=== PATIENT | male | born 1950 | race African-American/Black ===

== ENCOUNTER 2017-04-13 05:41 | Day surgery (SDC) | payer OTHER ==
[~2017-04-13] VITALS: Ht 170.2 cm; Wt 90.9 kg
[2017-04-13 07:24] LABS: HEMATOCRIT 21.8 % (42.0-54.0); MCHC 27.1 g/dL (31.0-37.0); MCV 65.1 fL (80.0-100.0); MEAN PLATELET VOLUME 9.5 fL (7.4-10.4); RBC 3.35 10x6/uL (4.20-6.10); RDW 21.7 % (11.5-14.5); WBC 9.6 10x3/uL (4.8-10.8)
[2017-04-13 07:31] LABS: HEMOGLOBIN 5.9 g/dL (13.5-17.5); MCH 17.6 pg (26.0-34.0)
[2017-04-13 08:39] VITALS: BP 108/69; Ht 170.2 cm; Wt 90.9 kg
[2017-04-13] MEDS ORDERED: LANOXIN125 MCG PO (09:08)
[2017-04-13] MEDS ORDERED: COREG25 MG PO (09:08)
[2017-04-13] MEDS ORDERED: ARTIFICIAL TEAR15 ML EACH EYE (09:09)
[2017-04-13] MEDS ORDERED: BAYER CHEWABLE81 MG PO (09:10)
[2017-04-13] MEDS ORDERED: FUROSEMIDE40 MG PO (09:11)
[2017-04-13] MEDS ORDERED: ALPHAGAN 0.2%5 ML EACH EYE (09:11)
[2017-04-13] MEDS ORDERED: MOBIC7.5 MG PO (09:12)
[2017-04-13] MEDS ORDERED: ZESTRIL40 MG PO (09:12)
[2017-04-13] MEDS ORDERED: HYDROCHLOROTHIA25 MG PO (09:12)
[2017-04-13] MEDS ORDERED: OMEPRAZOLE20 M1 PO (09:13)
[2017-04-13] MEDS ORDERED: SENEXON8.6 MG PO (09:13)
[2017-04-13] MEDS ORDERED: COUMADIN2.5 MG PO (09:14)
[2017-04-13 09:34] LABS: INR 1.22 (0.85-1.17); PROTIME 15.3 SECONDS (11.6-15.0)
--- NOTE | 2017-04-13 13:47 | NUR ---
1345 PROCEDURE ABORTED, PT COLON IS UNCLEAN, LOOKS IF PT HAS NOT PREPPED.
--- NOTE | 2017-04-13 14:18 | NUR ---
1353 BLOOD COMPLETED PER ANESTHESIA
--- NOTE | 2017-04-13 15:45 | NUR ---
1445 IV DC WITH CATHER TIP INTACT
--- NOTE | 2017-04-13 15:59 | NUR ---
BLOOD FINISH AT 1353 PER ANESTHIA ALL GIVEN IN GI LAB
--- NOTE | 2017-04-16 08:42 | OP ---
PATIENT NAME: RENEE TIRADO MEDICAL RECORD: [id number] :54 LOCATION:D.OPS ADMISSION DATE: SURGEON: WINTER PULIDO MD DATE OF OPERATION: 04/13/2017 PREOPERATIVE DIAGNOSES: 1. Acute blood loss anemia, requiring transfusions. 2. Significant cardiac issue, requiring that the procedure be done in a hospital facility. POSTOPERATIVE DIAGNOSES: 1. Acute blood loss anemia, requiring transfusions. 2. Significant cardiac issue, requiring that the procedure be done in a hospital facility. 3. Inadequate prep, essentially it appeared that he did not take any prep. The procedure had to be abandoned. PROCEDURE: Attempted colonoscopy (abandoned due to inadequate/no prep). SURGEON: Winter Pulido MD SORT WORKER: None. BLOOD LOSS: Minimal. ANESTHESIA: IV sedation. COMPLICATIONS: None. The risks, possible complications and alternatives to procedure were explained to the patient. He elects to proceed. He is a poor historian. The patient states he took prep. He had lots of formed fecal material within his colon and rectum. The diego of the colon and rectum were covered with solid fecal material. ENDOSCOPIC COURSE: The patient was conveyed to the endoscopy suite electively on 04/13/2017. IV sedation was induced by the anesthesia staff. The patient was placed in the Chavez position. A digital rectal examination was performed. A colonoscope was inserted through the anus. It was advanced up through the rectum and it was obvious that the colonoscopy was going to be inadequate and was going to be futile, so I abandoned the colonoscopy. The scope was withdrawn under direct vision. My advice would be to give the patient a 2-day prep. He will need to be rescheduled and his procedure should be performed in the hospital facility due to his significant cardiac issues. TRANSINT:[id number] Voice Confirmation ID: [id number] DOCUMENT ID: [id number] OPERATIVE REPORT [id number] CANDIDA,RENEEWINTER GOMES MD at 0842 CC: WINTER ROYAL MD, SAUL BANKS MD and LYDIA ARREDONDO [id number] DICTATION DATE: 04/13/17 1353 RIVER RAT: 04/13/17 1437 [facility] 04/13/17 [place] [address]
--- NOTE | 2017-04-16 08:42 | HP ---
PATIENT: RENEE TIRADO MEDICAL RECORD: [id number] ACCOUNT: [id number] LOCATION:CHAMP : 54 ADMISSION DATE: 04/13/17 HISTORY AND PHYSICAL EXAMINATION CHIEF COMPLAINT: He is here for colonoscopy. HISTORY OF PRESENT ILLNESS: The patient has had anemia. He has fecal occult blood positivity and he had blood on 2 of 3 cards. The patient was undergoing a prior colonoscopy, which had to be abandoned secondary to an irregular heart rhythm. I recommended a colonoscopy in the hospital for safety issues. He has been seen by building code inspector who suggested an atrial ablation with a transesophageal echo after ablation never going to arrange for an ICD implantation. His last appointment for that procedure was canceled, however. So, he is going to be getting a new cardiology consultation. He has had a history of atrial fibrillation and atrial flutter. He has also had a history of blood loss anemia from a gastric bleeding. He was found to be significantly anemic today with hematocrit of 21.8. He is undergoing a transfusion of 2 units of packed red blood cells. PAST MEDICAL AND SURGICAL HISTORY: History of tuberculosis in the past. Positive for hepatitis C. Other problems, atrial fibrillation, hypertension, coronary artery disease, shortness of breath. REVIEW OF SYSTEMS: Negative for diabetes or thyroid problems. Negative for renal disease or hepatitis. SOCIAL HISTORY: Ex-smoker. REVIEW OF SYSTEMS: Negative for diabetes or thyroid problems. Negative for renal disease or hepatitis. PHYSICAL EXAMINATION: GENERAL: The patient does not appear acutely ill. He does not appear chronically ill. VITAL SIGNS: Reviewed. HEAD: External ears appear normal. EYES: Extraocular movements are intact. NECK: Trachea is midline. CHEST: No intercostal retractions. ABDOMEN: No peritonitis with movement. EXTREMITIES: No peripheral cyanosis. IMPRESSIONS: 1. Acute blood loss anemia likely from a gastrointestinal source. 2. Significant cardiac issues. 3. On Coumadin. PLAN: Colonoscopy. TRANSINT:[id number] Voice Confirmation ID: [id number] DOCUMENT ID: [id number] CC: Dr. Pedro Latham, fax not located. HISTORY AND PHYSICAL [id number] CANDIDA,RENEEWINTER GOMES MD at 0842 CC: WINTER ROYAL MD, SAUL BANKS MD and LYDIA ARREDONDO [id number] DICTATION DATE: 04/13/17 1333 MARINE ELECTRONICS TECHNICIAN: 04/13/17 1404 [facility] 04/13/17 [place] [id number] [place] [id number]
== END 2017-04-13 15:00 | disposition home or self-care (01) ==
LOC: D.OPS 05:41
PROVIDERS: Anesthesiology
DX: D62 Acute posthemorrhagic anemia (principal); F17.200 Nicotine dependence, unspecified, uncomplicated; I25.10 Atherosclerotic heart disease of native coronary artery without angina pectoris; I10 Essential (primary) hypertension; I49.9 Cardiac arrhythmia, unspecified; Z95.5 Presence of coronary angioplasty implant and graft; Z01.812 Encounter for preprocedural laboratory examination

== ENCOUNTER 2017-05-07 06:12 | Day surgery (SDC) | payer OTHER ==
[~2017-05-07 06:12] MED LIST: ALPHAGAN 0.2%5 ML EACH EYE; ARTIFICIAL TEAR15 ML EACH EYE; BAYER CHEWABLE81 MG PO; COREG25 MG PO; COUMADIN2.5 MG PO; FUROSEMIDE40 MG PO; HYDROCHLOROTHIA25 MG PO; LANOXIN125 MCG PO; MOBIC7.5 MG PO; OMEPRAZOLE20 M1 PO; SENEXON8.6 MG PO; ZESTRIL40 MG PO
[2017-05-07 07:28] LABS: BASOPHILS 0.7 % (0-2); EOSINOPHILS 5.4 % (0-7); HEMATOCRIT 27.8 % (42.0-54.0); IMMATURE GRANULOCYTES 0.2 % (0-5); LYMPHOCYTES 27.7 % (15-50); MCH 19.9 pg (26.0-34.0); MCHC 28.8 g/dL (31.0-37.0); MEAN PLATELET VOLUME 9.7 fL (7.4-10.4); MONOCYTES 11.6 % (2-11); NEUTROPHILS 54.4 % (40-80); PLATELET COUNT 499 10x3/uL (130-400); RBC 4.03 10x6/uL (4.20-6.10); RDW 25.3 % (11.5-14.5); WBC 10.3 10x3/uL (4.8-10.8)
[2017-05-07 07:36] LABS: APTT 32.2 SECONDS (22.8-39.4); INR 1.42 (0.85-1.17); PROTIME 17.3 SECONDS (11.6-15.0)
[2017-05-07 07:46] LABS: ALBUMIN 3.4 g/dL (3.4-5.0); ANION GAP 13.9 mmol/L (8-16); BILIRUBIN - TOTAL 0.29 mg/dL (0.2-1.3); CALCIUM 8.7 mg/dL (8.5-10.1); CARBON DIOXIDE 25.8 mmol/L (21.0-32.0); CREATININE - SERUM 1.1 mg/dL (0.6-1.3); POTASSIUM - SERUM 3.7 mmol/L (3.5-5.1); PROTEIN - SERUM 7.9 g/dL (6.4-8.2)
[2017-05-07 08:52] VITALS: BP 150/73; BMI 31.4
--- NOTE | 2017-05-07 11:40 | NUR ---
1120 CALLED [facility] AND TALKED WITH NURSE NADEGE OF TIMES OF COUMADIN MOBIC AND ASA TOOK LAST ON 05/05/17 AND 05/06/17 AND VERIFIED DID NO PREP AND TOOK ATE HOT DOGS AND BEANS AT 4 PM. PATIENT INSISENT DID PREP. REPORTED THIS TO DR. PULIDO.
--- NOTE | 2017-05-07 11:48 | NUR ---
COLONOSCOPY ATTEMPTED STOOL NOTED PROCEDURE ABORTED.
--- NOTE | 2017-05-07 12:30 | NUR ---
PT JEREMIAS TRAY WELL PIV DC W/CATHETER TIP INTACT DC TO [facility] OFFICERS.
--- NOTE | 2017-05-07 13:32 | NUR ---
DICTATION TRANSCRIPT OF PROCEDURE SENT VIA MAIL TO [facility].
--- NOTE | 2017-05-10 16:05 | HP ---
PATIENT: RENEE TIRADO MEDICAL RECORD: [id number] ACCOUNT: [id number] LOCATION:CHAMP : 54 ADMISSION DATE: 05/07/17 HISTORY AND PHYSICAL EXAMINATION CHIEF COMPLAINT: Here for colonoscopy. HISTORY OF PRESENT ILLNESS: The patient has anemia. He has had fecal occult blood positivity on 2 out of 3 cards. The patient was undergoing a prior colonoscopy, which had to be abandoned secondary to an irregular heart rhythm. I recommended colonoscopy in the hospital for safety issues. PAST MEDICAL AND SURGICAL HISTORY: Tuberculosis in the past, hepatitis C, atrial fibrillation, hypertension, coronary artery disease, shortness of breath. REVIEW OF SYSTEMS: Negative for diabetes or thyroid problems. SOCIAL HISTORY: Ex-smoker. The patient has been taking aspirin. He has also been taking Coumadin. We called out to the skilled nursing. They stated that he had had beans and hotdogs about 4:00 p.m. yesterday. He states he has taken the prep. The nurses at the retirement stated that he had not taken a prep. PHYSICAL EXAMINATION: GENERAL: The patient does not appear acutely ill. He does appear chronically ill. VITAL SIGNS: Reviewed. HEAD: External ears appear normal. EYES: Extraocular movements are intact. NECK: Trachea is midline. CHEST: No intercostal retractions. PULMONARY: Nonlabored, no stridor. IMPRESSION: 1. Fecal occult blood positive. 2. Blood loss anemia. PLAN: Colonoscopy. TRANSINT:[id number] Voice Confirmation ID: [id number] DOCUMENT ID: [id number] WINTER PULIDO MD at 1605 CC: WINTER ROYAL MD, SAUL BANKS MD and LYDIA ARREDONDO [id number] DICTATION DATE: 05/07/17 1130 SPRING ASSEMBLER SUPERVISOR: 05/07/17 1212 [facility] 05/07/17 [place] [address]
--- NOTE | 2017-05-10 16:05 | OP ---
PATIENT NAME: RENEE TIRADO MEDICAL RECORD: [id number] :54 LOCATION:D.OPS ADMISSION DATE: SURGEON: WINTER PULIDO MD DATE OF OPERATION: 05/07/2017 PREOPERATIVE DIAGNOSES: 1. Fecal occult blood positivity. 2. Anemia, blood loss. POSTOPERATIVE DIAGNOSES: 1. Fecal occult blood positivity. 2. Anemia, blood loss. 3. Inadequate prep. PROCEDURE: Aborted colonoscopy. SURGEON: Winter Pulido MD RED LEAD BURNER: None. BLOOD LOSS: Minimal. ANESTHESIA: IV sedation. COMPLICATIONS: None. FINDINGS: The patient appears to have had either no or little prep. Essentially, he had an unprepped colon. There was still a great deal of solid fecal material within the colon and rectum. DESCRIPTION OF PROCEDURE: The patient was conveyed to the endoscopy suite electively on 05/07/2017. IV sedation was induced by the anesthesia staff. The patient was placed in the Chavez position. A digital rectal examination was performed. A colonoscope was inserted through the anus. It was advanced up the rectum and then the procedure was aborted. I withdrew the endoscope. The patient is [facility]. We will attempt another colonoscopy sometime in the future. I would recommend a 2-day prep. TRANSINT:[id number] Voice Confirmation ID: [id number] DOCUMENT ID: [id number] WINTER PULIDO MD at 1605 CC: WINTER ROYAL MD, SAUL BANKS MD and LYDIA ARREDONDO [phone] DICTATION DATE: 05/07/17 1142 SEED POTATO CUTTER: 05/07/17 1311 [facility] 05/07/[address] [address]
== END 2017-05-07 12:30 | disposition home or self-care (01) ==
LOC: D.OPS 06:12
PROVIDERS: Anesthesiology
DX: D64.9 Anemia, unspecified (principal); I25.10 Atherosclerotic heart disease of native coronary artery without angina pectoris; I10 Essential (primary) hypertension; I48.91 Unspecified atrial fibrillation; B19.20 Unspecified viral hepatitis C without hepatic coma; Z01.812 Encounter for preprocedural laboratory examination

== ENCOUNTER 2017-06-11 05:21 | Outpatient (CLI) | payer OTHER ==
--- NOTE | 2017-06-11 07:01 | NUR ---
0645-DR. PULIDO NOTIFIED NO BOWEL PREP PER SK[facility]ED [facility] PERSONNEL. PROCEDURE CANCELLED, PT. LEFT VIA WHEELCHAIR WITH TWO SKILLED NURSING GUARDS AT SIDE.
== END 2017-06-11 06:50 ==
LOC: D.OPS 05:21
DX: D64.9 Anemia, unspecified (principal); Z01.810 Encounter for preprocedural cardiovascular examination; Z01.811 Encounter for preprocedural respiratory examination; Z01.812 Encounter for preprocedural laboratory examination; Z53.9 Procedure and treatment not carried out, unspecified reason

== ENCOUNTER 2017-08-11 10:57 | Day surgery (SDC) | payer OTHER ==
[~2017-08-11] VITALS: Ht 170.2 cm; Wt 91.8 kg
--- NOTE | ~2017-08-11 | OP ---
PATIENT NAME: RENEE TIRADO MEDICAL RECORD: [id number] :54 LOCATION:D.[facility] ADMISSION DATE: SURGEON: WINTER PULIDO MD DATE OF OPERATION: 08/11/2017 PREOPERATIVE DIAGNOSES: 1. Anemia requiring blood transfusion. 2. Fecal occult blood positivity. 3. History of multiple attempts at colonoscopy that had to be aborted due to inadequate prep. 4. Anticoagulated on Coumadin. POSTOPERATIVE DIAGNOSES: 1. Anemia requiring blood transfusion. 2. Fecal occult blood positivity. 3. History of multiple attempts at colonoscopy that had to be aborted due to inadequate prep. 4. Anticoagulated on Coumadin. 5. Inadequate prep again today; however, I was able to identify a circumferential rectal mass. The mass started at 15 cm from the anus and extended up to 20 cm. This mass was friable, bled easily, and is likely going to cause a rectal obstruction in the near future. PROCEDURES: 1. Total colonoscopy to cecum. 2. Biopsies of rectal mass. The procedure had to be terminated after one rectal biopsy was obtained and the patient had some significant bleeding from this site. The patient has been on Coumadin and in fact took a dose of Coumadin morning. Despite a multi-day prep, the patient still had a very poor prep. I was able to, at this time, see the circumferential rectal mass, which I was unable to see previously due to a lot of solid and liquid fecal material. I was able to advance the scope all the way to the cecum. When I withdrew it, I could rule out other obstructing or near obstructing rectal masses. The rectal mass that I had identified, I could feel with my gloved finger while the patient was sedated and in a Chavez position. I could barely feel it with my gloved finger. I could determine that it is about 15 cm from the anal verge and extends up to 20 cm from the anal verge. Additional biopsies had to be terminated because of bleeding after the initial biopsy. ENDOSCOPIC COURSE: The patient was conveyed to endoscopy suite electively on 08/11/2017. IV sedation was induced by the anesthesia staff. It was necessary for the anesthesia staff to be present as the patient has had cardiac rhythm problems during other procedures. A digital rectal examination was performed. A colonoscope was inserted through the anus. I was able to advance it through the nearly obstructing rectal mass to the cecum. I slowly withdrew the endoscope. I irrigated and aspirated extensively. I dragged the folds. I used narrow band imaging as well as direct imaging to visualize the colonic diego. I measured from the anal verge, the distance up to the mass and the length of the mass, which is circumferential and is particularly worrisome as I think it is going to become an obstructing rectal mass sometime soon. I took one biopsy. We began having some bleeding and as the patient is on Coumadin, I elected to terminate further biopsies. There is no doubt that this does represent a malignancy. Even if the biopsy comes back, it is not a malignancy. This most OPERATIVE REPORT [id number] CANDIDARENEE certainly is a malignancy under some polypoid growth. I contacted Dr. Lydia Mane by phone. I think that we have several options. One would be an abdominoperineal resection and other would be a diverting colostomy and then preoperative chemotherapy and radiation prior to a proctectomy. The patient is pretty frail and I think might benefit more from a 1-stage procedure like an abdominoperineal resection. TRANSINT:[id number] Voice Confirmation ID: [id number] DOCUMENT ID: [id number] WINTER PULIDO MD at 0938 CC: WINTER ROYAL MD, SAUL BANKS MD and LYDIA MANE [id number] DICTATION DATE: 08/11/171935 HAIRSPRING VIBRATOR: 08/12/17 0151 [facility] 08/11/17 [facility] [address] [place] [address]
--- NOTE | ~2017-08-11 | HP ---
PATIENT: RENEE TIRADO MEDICAL RECORD: [id number] ACCOUNT: [id number] [facility] 54 ADMISSION DATE: 08/11/17 HISTORY AND PHYSICAL EXAMINATION CHIEF COMPLAINT: Anemia. HISTORY OF PRESENT ILLNESS: The patient is transported back again today. Multiple times we have attempted to have him undergo colonoscopy and there have been inadequate preps. He has been anemic. This anemia has required transfusions. He has had fecal occult blood positivity. He has had a history of heart rhythm problems during colonoscopies in the past and for that reason, he is having a colonoscopy in the hospital. The patient has been on Coumadin, as a matter of fact took Coumadin today. ALLERGIES: No known drug allergies. MEDICINES AT THE RESIDENTIAL: He is on eye drops, carvedilol, digoxin, Fiber-Lax, furosemide, hydrochlorothiazide, lisinopril, meloxicam, omeprazole as well as warfarin. PAST MEDICAL AND SURGICAL HISTORY: Hypertension, arrhythmia, arthritis, history of tuberculosis, hepatitis C, anemia. SOCIAL HISTORY: He is a smoker. REVIEW OF SYSTEMS: Negative for CVA or seizures. Negative for diabetes or thyroid problems. PHYSICAL EXAMINATION: GENERAL: The patient does not appear acutely ill. He does appear chronically ill. VITAL SIGNS: Reviewed. EARS: External ears appear normal. EYES: Extraocular movements are intact. NECK: Trachea is midline. CHEST: No intercostal retractions. PULMONARY: Nonlabored, no stridor. ABDOMEN: No peritonitis with movement. IMPRESSION: 1. Blood loss anemia requiring transfusions. 2. Fecal occult blood positivity 2 out of 3. 3. History of heart rhythm problems. 4. Anticoagulated, on Coumadin. PLAN: Colonoscopy. TRANSINT:[id number] Voice Confirmation ID: [id number] DOCUMENT ID: [id number] HISTORY AND PHYSICAL [id number] RENEE TIRADO ROBERT MD at 0938 CC: [id number] DICTATION DATE: 08/11/17 173 HORSE RACING ANALYST: 08/11/17 1809 [facility] 08/11/17 [place] [address] [place] [address]
[2017-08-11 12:23] LABS: BASOPHILS 0.3 % (0-2); EOSINOPHILS 0.4 % (0-7); HEMATOCRIT 28.9 % (42.0-54.0); IMMATURE GRANULOCYTES 0.2 % (0-5); LYMPHOCYTES 18.2 % (15-50); MCHC 27.7 g/dL (31.0-37.0); MCV 67.1 fL (80.0-100.0); MEAN PLATELET VOLUME 9.6 fL (7.4-10.4); NEUTROPHILS 68.9 % (40-80); PLATELET COUNT 578 10x3/uL (130-400); RBC 4.31 10x6/uL (4.20-6.10); RDW 27.7 % (11.5-14.5); WBC 9.5 10x3/uL (4.8-10.8)
[2017-08-11 12:28] LABS: ANION GAP 12.8 mmol/L (8-16); CALCIUM 9.1 mg/dL (8.5-10.1); CARBON DIOXIDE 32.2 mmol/L (21.0-32.0); CREATININE - SERUM 2.1 mg/dL (0.6-1.3)
[2017-08-11 12:34] LABS: MCH 18.6 pg (26.0-34.0)
[2017-08-11 14:58] VITALS: Ht 170.2 cm; Wt 91.8 kg
== END 2017-08-11 19:35 | disposition home or self-care (01) ==
LOC: D.OPS 10:57
PROVIDERS: Anesthesiology
DX: D64.9 Anemia, unspecified (principal); C20 Malignant neoplasm of rectum; Z79.01 Long term (current) use of anticoagulants; F17.200 Nicotine dependence, unspecified, uncomplicated; I10 Essential (primary) hypertension; B19.20 Unspecified viral hepatitis C without hepatic coma; Z01.812 Encounter for preprocedural laboratory examination

== ENCOUNTER 2017-12-01 09:02 | Inpatient (IN) | payer MEDICAID ==
[~2017-12-01] VITALS: Ht 170.2 cm; Wt 90.7 kg
--- NOTE | ~2017-12-01 | CN ---
PATIENT NAME:RENEE TIRADO MEDICAL RECORD: [id number] : 54 LOCATION:D.MS [place] ADMIT DATE: 12/01/17 ACCOUNT: [id number] CONSULTING PHYSICIAN: WINTER PULIDO MD REFERRING PHYSICIAN: CHARI MORALES MD DATE OF CONSULTATION: 12/01/2017 CHIEF COMPLAINT: Cancer. This is a consultation note addendum. For the typed portion of the consult note, please see the chart. This would include the past medical and surgical history, current medications, allergies, social history as well as family history. I have seen the patient out at the intermediate. Initially, the patient refused a diverting colostomy. He has had significant bleeding through the anus due to the anorectal cancer. This has required blood transfusions. A diverting colostomy I think would cause continuation of the anorectal bleeding. As the cancer appears to involve the very lower rectum and probably the anal musculature, he is really not a candidate for neoadjuvant chemotherapy and radiation. I have explained the planned operation to him several times in as simple terms as I can and had him relay back to me how he felt about the procedure and what the planned procedure was. Nothing aggravates. Nothing alleviates. The patient was admitted with acute renal failure as well as atrial fibrillation with rapid ventricular response. It is very likely the patient has an advanced malignancy. He has had pneumaturia. He has some dull perineal and dull lower abdominal pain in the suprapubic area. REVIEW OF SYSTEMS: No nausea. No vomiting. No fever or chills. Positive for heart palpitations. Positive for chest pain. Positive for shortness of breath. The review of systems is negative other than as is described above. PHYSICAL EXAMINATION: GENERAL: He does appear acutely ill. Also appears chronically ill. VITAL SIGNS: Reviewed. EARS: External ears appear normal. EYES: Extraocular movements are intact. NECK: Trachea is midline. CHEST: No intercostal retractions. CARDIOVASCULAR: Irregular rate and rhythm, tachycardic. PULMONARY: Nonlabored, no stridor. ABDOMEN: Nontender. EXTREMITIES: No peripheral cyanosis. INTEGUMENT: No rash. No ulcerations. PSYCHIATRIC: Normal affect. NEUROLOGIC: There is evidence of loss of some higher cortical function. BACK: No thoracic kyphosis. LYMPHATICS: No lymphangitic streaking of the exposed extremities. IMPRESSION: The patient with anorectal cancer in preparation for an abdominoperineal resection, who now has significant comorbidities that are going to need to be addressed prior to his operative procedure. CONSULT REPORT [id number] CANDIDARENEE TRANSINT:[id number] Voice Confirmation ID: [id number] DOCUMENT ID: [id number] 12/16/2017 Edited to correct date of consultation, dmlorelei. WINTER PULIDO MD at 1157 CC: CHARI MORALES MD, KIMBERLI JUDD MD and LYDIA ARREDONDO [id number] DICTATION DATE: 12/08/17 1037 WATER PUMP ASSEMBLER: 12/08/17 1323 [facility] 12/15/17 [place] [id number] [place] [address]
--- NOTE | ~2017-12-01 | OP ---
PATIENT NAME: RENEE TIRADO MEDICAL RECORD: [id number] :54 LOCATION:D.MS [place] ADMISSION DATE:12/01/17 SURGEON: WINTER PULIDO MD DATE OF OPERATION: 12/07/2017 PREOPERATIVE DIAGNOSIS: Extensive anorectal cancer. POSTOPERATIVE DIAGNOSES: 1. Extensive anorectal cancer with a rectal perforation. 2. Left lateral segment nodule, which was not amenable to biopsy during this operative procedure. PROCEDURE: Abdominoperineal resection, appendectomy. SURGEON: Winter Pulido MD EMPLOYMENT PROGRAMS ANALYST: None. BLOOD LOSS: 400 cc. ANESTHESIA: General. COMPLICATIONS: None. This was a dirty case as the patient had a perforated rectal cancer. An appendectomy was performed as the patient had adhesions to the area of perforation in the pelvis. These were adhesions from the ileum. The appendix was involved in this adhesive process and therefore was removed in order to avoid diagnostic confusion in the future should the patient have a persistence or recurrence of abdominal pain. OPERATIVE COURSE: The patient was conveyed the operating room electively on 12/07/2017. General anesthesia was induced by the anesthesia staff. The abdomen was sterilely prepped and draped. The perineum was sterilely prepped and draped as well. The patient was in stirrups. A midline incision was accomplished. Sharp dissection was carried down through skin and subcutaneous tissue as well as midline fascia. Peritoneal cavity was entered sharply. An Booker retractor was placed. I incised the left white line of Toldt. I entered the inner sigmoid fossa sharply. I chose the distal extent of my resection to be the distal descending colon. I then began to dissect in the right lower quadrant and there were adhesions that were from the ileum extended down into the pelvis. These were freed up sharply. There was no full thickness enterotomy. A window was created in the mesoappendix. I stapled across the tip of the cecum with a EMILY-75 stapler. I then took down the mesoappendix with the EnSeal device. I incised along both peritoneal reflections onto the rectum. I identified both ureters. Umbilical tapes were placed around both ureters, which were protected and retracted for protection. At no time during the operation was there any OPERATIVE REPORT [id number] RENEE TIRADO apparent ureteral or bladder injury. Intravenous methylene blue was given. We identified no leakage of methylene blue. I continued my dissection of the sigmoid colon. The mesentery of the sigmoid colon was sealed and divided utilizing the EnSeal device. I then continued my dissection of the rectum off of the sacrum and this was done bluntly down to the tip of the sacrum. I then took down the lateral rectal stalks sharply. I then freed up the tissue between the rectum and the bladder. This was done bluntly down to the level of the prostate gland. I then went below and we elevated both of the patient's extremities on the adjustable stirrups. At 12 o'clock and 6 o'clock, Anna's were placed on the anus. A circumferential incision was accomplished around the anus. I then continued my dissection up to the pelvic floor. I sharply divided the tissue between the prostate gland and the rectum. I dissected posteriorly to the tip of the sacrum. I then continued my dissection laterally on both sides of the rectum. At no time was there any full thickness rectal injury. I was able to then deliver the rectum, which was perforated and had a pretty much tore in half during the dissection through the abdomen, out through the peritoneal opening. I irrigated with hydrogen peroxide as well as normal saline. The pelvic floor was approximated with multiple interrupted horizontal mattress #1 Vicryls. The subcutaneous adipose tissue was approximated with multiple interrupted #1 Vicryl. The skin was approximated with multiple interrupted horizontal mattress #1 Vicryls. I then changed my gown and gloves. I went above again. I irrigated in the pelvis with normal saline and hydrogen peroxide. I created an omental flap in order to place it down to the pelvis to avoid space there. The omental flap was created from the left side to the midline and I dissected this off of the transverse colon with the EnSeal device. The omental flap was placed down in the pelvis. I ran the small bowel and identified no injury to the bowel such as a retractor injury. A circular defect was accomplished long term between the anterior superior iliac spine and the umbilicus. I dissected down through the skin and subcutaneous tissues to the fascia of the rectus abdominis muscle. A cruciate incision was accomplished. I then dissected down bluntly between the fibers of the rectus abdominis muscle. A posterior fascia was incised. I was able to deliver the staple off into the colon without any apparent kinking or twisting. This was held exteriorly with a Johnnie. I irrigated again with normal saline in the pelvis. The peritoneum was reperitonealized with running #1 Vicryl. The midline fascia was closed with a looped #1 PDS. Subcutaneous adipose tissue was closed with interrupted 3-0 Vicryl. Metallic clips were used for the skin. I then went about maturation of the stoma. The staple line was excised. I performed a Tika type of everting colostomy. I then sutured the full thickness edges of the colon to the surrounding skin with 3-0 Vicryl. A stomal appliance was then applied. The patient was then extubated and conveyed to the intensive care unit. OPERATIVE REPORT [id number] RENEE TIRADO TRANSINT:[id number] Voice Confirmation ID: [id number] DOCUMENT ID: [id number] WINTER PULIDO MD at 1157 CC: CHARI MORALES MD [id number] DICTATION DATE: 12/09/17 110 SOCCER COACH: 12/09/17 1226 [facility] 12/15/17 [facility] [address] [place] [address]
[2017-12-01 11:08] VITALS: BP 176/81; BMI 31.4
[2017-12-01 12:26] VITALS: BP 169/93
[2017-12-01 16:25] VITALS: BP 158/88
[2017-12-01 21:54] VITALS: BP 130/83
[2017-12-02 04:47] VITALS: BP 140/87
[2017-12-02 06:52] LABS: BASOPHILS 1.5 % (0-2); EOSINOPHILS 3.7 % (0-7); HEMATOCRIT 35.1 % (42.0-54.0); HEMOGLOBIN 10.2 g/dL (13.5-17.5); IMMATURE GRANULOCYTES 0.2 % (0-5); LYMPHOCYTES 14.6 % (15-50); MCH 20.6 pg (26.0-34.0); MCHC 29.1 g/dL (31.0-37.0); MCV 71.1 fL (80.0-100.0); MEAN PLATELET VOLUME 10.1 fL (7.4-10.4); MONOCYTES 11.4 % (2-11); NEUTROPHILS 68.6 % (40-80); PLATELET COUNT 591 10x3/uL (130-400); RBC 4.94 10x6/uL (4.20-6.10); RDW 27.4 % (11.5-14.5)
[2017-12-02 07:08] LABS: ALBUMIN 3.4 g/dL (3.4-5.0); ANION GAP 11.7 mmol/L (8-16); CALCIUM 9.3 mg/dL (8.5-10.1); CARBON DIOXIDE 28.8 mmol/L (21.0-32.0); CREATININE - SERUM 1.1 mg/dL (0.6-1.3); POTASSIUM - SERUM 3.5 mmol/L (3.5-5.1); PROTEIN - SERUM 7.6 g/dL (6.4-8.2)
[2017-12-02] MEDS ORDERED: PERCOCET 10/3251 TA1 PO (07:46)
[2017-12-02 07:57] VITALS: BP 162/111
[2017-12-02] MEDS ORDERED: ALPHAGAN 0.2%5 ML EACH EYE (08:22)
[2017-12-02] MEDS ORDERED: ARTIFICIAL TEAR15 ML EACH EYE (08:23)
[2017-12-02] MEDS ORDERED: BAYER CHEWABLE81 MG PO (08:23)
[2017-12-02] MEDS ORDERED: COREG25 MG PO (08:23)
[2017-12-02] MEDS ORDERED: COUMADIN2.5 MG PO (08:24)
[2017-12-02] MEDS ORDERED: OMEPRAZOLE20 M1 PO (08:25)
[2017-12-02] MEDS ORDERED: MOBIC7.5 MG PO (08:25)
[2017-12-02] MEDS ORDERED: HYDROCHLOROTHIA25 MG PO (08:25)
[2017-12-02] MEDS ORDERED: FUROSEMIDE40 MG PO (08:25)
[2017-12-02] MEDS ORDERED: LANOXIN125 MCG PO (08:25)
[2017-12-02] MEDS ORDERED: ZESTRIL40 MG PO (08:26)
[2017-12-02 10:23] VITALS: BMI 31.3
[2017-12-02 10:54] VITALS: Ht 170.2 cm; Wt 90.7 kg
[2017-12-02 12:01] VITALS: BP 117/69
[2017-12-02 16:02] VITALS: BP 81/54
[2017-12-02 21:03] VITALS: BP 87/49
[2017-12-03] VITALS (7 sets, daily range): BP systolic 94–142; BP diastolic 60–83
[2017-12-04] VITALS (7 sets, daily range): BP systolic 72–147; BP diastolic 42–117
[2017-12-04 05:09] LABS: EOSINOPHILS 4.3 % (0-7); HEMATOCRIT 37.3 % (42.0-54.0); HEMOGLOBIN 10.9 g/dL (13.5-17.5); IMMATURE GRANULOCYTES 0.3 % (0-5); LYMPHOCYTES 15.7 % (15-50); MCHC 29.2 g/dL (31.0-37.0); MCV 71.9 fL (80.0-100.0); MEAN PLATELET VOLUME 10.3 fL (7.4-10.4); MONOCYTES 14.1 % (2-11); NEUTROPHILS 64.6 % (40-80); PLATELET COUNT 567 10x3/uL (130-400); RBC 5.19 10x6/uL (4.20-6.10); WBC 12.9 10x3/uL (4.8-10.8)
[2017-12-04 05:15] LABS: ALBUMIN 3.3 g/dL (3.4-5.0); ALKALINE PHOSPHATASE 91 U/L (46-116); BILIRUBIN - TOTAL 0.52 mg/dL (0.2-1.3); CALC OSMOLALITY 274 mosm/kg (275-300); CALCIUM 8.9 mg/dL (8.5-10.1); CARBON DIOXIDE 26.1 mmol/L (21.0-32.0); CHLORIDE - SERUM 100 mmol/L (98-107); GLUCOSE 91 mg/dL (74-106); POTASSIUM - SERUM 3.6 mmol/L (3.5-5.1); PROTEIN - SERUM 7.8 g/dL (6.4-8.2); SODIUM 137 mmol/L (136-145); UREA NITROGEN 16 mg/dL (7-18); eGFR NON AFRICAN AMERICAN 80 mL/min (90-120)
[2017-12-04 05:26] LABS: ALT (SGPT) 12 U/L (10-68)
[2017-12-05 00:22] VITALS: BP 124/55
[2017-12-05 05:19] LABS: BASOPHILS 0.7 % (0-2); EOSINOPHILS 6.8 % (0-7); HEMATOCRIT 38.3 % (42.0-54.0); HEMOGLOBIN 11.1 g/dL (13.5-17.5); IMMATURE GRANULOCYTES 0.3 % (0-5); MCH 21.1 pg (26.0-34.0); MCV 72.7 fL (80.0-100.0); MEAN PLATELET VOLUME 9.9 fL (7.4-10.4); MONOCYTES 13.7 % (2-11); NEUTROPHILS 62.5 % (40-80); PLATELET COUNT 543 10x3/uL (130-400); RBC 5.27 10x6/uL (4.20-6.10); WBC 11.6 10x3/uL (4.8-10.8)
[2017-12-05 05:33] LABS: ALBUMIN 3.4 g/dL (3.4-5.0); BILIRUBIN - TOTAL 0.5 mg/dL (0.2-1.3); CALCIUM 9.4 mg/dL (8.5-10.1); CARBON DIOXIDE 30.1 mmol/L (21.0-32.0); CREATININE - SERUM 1.2 mg/dL (0.6-1.3); PROTEIN - SERUM 7.4 g/dL (6.4-8.2)
[2017-12-05 05:44] LABS: ANION GAP 14.1 mmol/L (8-16); POTASSIUM - SERUM 4.2 mmol/L (3.5-5.1)
[2017-12-05 08:26] VITALS: BP 117/54
[2017-12-05 12:00] VITALS: BP 93/47
[2017-12-05 16:14] VITALS: BP 88/51
[2017-12-05 21:12] VITALS: BP 133/86
[2017-12-06 06:14] LABS: BASOPHILS 0.5 % (0-2); EOSINOPHILS 6.3 % (0-7); HEMATOCRIT 37.1 % (42.0-54.0); HEMOGLOBIN 10.8 g/dL (13.5-17.5); IMMATURE GRANULOCYTES 0.2 % (0-5); LYMPHOCYTES 12.4 % (15-50); MCH 21.5 pg (26.0-34.0); MCHC 29.1 g/dL (31.0-37.0); MCV 73.8 fL (80.0-100.0); MEAN PLATELET VOLUME 9.9 fL (7.4-10.4); MONOCYTES 12.5 % (2-11); NEUTROPHILS 68.1 % (40-80); PLATELET COUNT 435 10x3/uL (130-400); RBC 5.03 10x6/uL (4.20-6.10); RDW 28.8 % (11.5-14.5); WBC 12.1 10x3/uL (4.8-10.8)
[2017-12-06 06:44] LABS: ALBUMIN 3.1 g/dL (3.4-5.0); ANION GAP 13.4 mmol/L (8-16); BILIRUBIN - TOTAL 0.42 mg/dL (0.2-1.3); CARBON DIOXIDE 29.3 mmol/L (21.0-32.0); CREATININE - SERUM 1.1 mg/dL (0.6-1.3); POTASSIUM - SERUM 3.7 mmol/L (3.5-5.1); PROTEIN - SERUM 7.5 g/dL (6.4-8.2)
[2017-12-06 08:38] VITALS: BP 116/68
[2017-12-06 12:23] VITALS: BP 110/65
[2017-12-06 20:29] VITALS: BP 106/76
[2017-12-07] VITALS (8 sets, daily range): BP systolic 91–134; BP diastolic 58–88
[2017-12-07 07:07] LABS: EOSINOPHILS 7.7 % (0-7); HEMATOCRIT 37.3 % (42.0-54.0); HEMOGLOBIN 10.8 g/dL (13.5-17.5); IMMATURE GRANULOCYTES 0.2 % (0-5); LYMPHOCYTES 17.4 % (15-50); MCH 21.4 pg (26.0-34.0); MCV 73.9 fL (80.0-100.0); MEAN PLATELET VOLUME 9.9 fL (7.4-10.4); NEUTROPHILS 60.7 % (40-80); PLATELET COUNT 426 10x3/uL (130-400); RBC 5.05 10x6/uL (4.20-6.10); RDW 28.4 % (11.5-14.5)
[2017-12-07 07:13] LABS: WBC 8.7 10x3/uL (4.8-10.8)
[2017-12-07 07:19] LABS: ANION GAP 11.4 mmol/L (8-16); CALCIUM 9.2 mg/dL (8.5-10.1); CARBON DIOXIDE 31.1 mmol/L (21.0-32.0); CREATININE - SERUM 1.1 mg/dL (0.6-1.3); POTASSIUM - SERUM 3.5 mmol/L (3.5-5.1)
[2017-12-07 14:11] LABS: INR 1.1 (0.85-1.17); PROTIME 13.8 SECONDS (11.6-15.0)
[2017-12-08] VITALS (24 sets, daily range): BP systolic 77–110; BP diastolic 48–69
[2017-12-08 03:45] LABS: BASOPHILS 0.1 % (0-2); EOSINOPHILS 0 % (0-7); HEMATOCRIT 35.2 % (42.0-54.0); HEMOGLOBIN 10.3 g/dL (13.5-17.5); IMMATURE GRANULOCYTES 0.3 % (0-5); LYMPHOCYTES 6.1 % (15-50); MCHC 29.3 g/dL (31.0-37.0); MCV 75.1 fL (80.0-100.0); MONOCYTES 8.4 % (2-11); NEUTROPHILS 85.1 % (40-80); PLATELET COUNT 360 10x3/uL (130-400); RBC 4.69 10x6/uL (4.20-6.10); RDW 28.2 % (11.5-14.5)
[2017-12-08 03:46] LABS: WBC 15.5 10x3/uL (4.8-10.8)
[2017-12-08 04:06] LABS: ALBUMIN 2.6 g/dL (3.4-5.0); BILIRUBIN - TOTAL 1.08 mg/dL (0.2-1.3); CALCIUM 8.9 mg/dL (8.5-10.1); CARBON DIOXIDE 25.4 mmol/L (21.0-32.0); PROTEIN - SERUM 6.6 g/dL (6.4-8.2)
[2017-12-08 04:07] LABS: ANION GAP 14.7 mmol/L (8-16); CREATININE - SERUM 1.5 mg/dL (0.6-1.3); POTASSIUM - SERUM 4.1 mmol/L (3.5-5.1)
[2017-12-09] VITALS (23 sets, daily range): BP systolic 94–122; BP diastolic 50–74
[2017-12-09 03:26] LABS: BASOPHILS 0.2 % (0-2); EOSINOPHILS 0.3 % (0-7); HEMATOCRIT 28.3 % (42.0-54.0); HEMOGLOBIN 8.2 g/dL (13.5-17.5); IMMATURE GRANULOCYTES 0.3 % (0-5); LYMPHOCYTES 7.1 % (15-50); MCH 21.8 pg (26.0-34.0); MCV 75.3 fL (80.0-100.0); MONOCYTES 9.8 % (2-11); NEUTROPHILS 82.3 % (40-80); PLATELET COUNT 249 10x3/uL (130-400); RBC 3.76 10x6/uL (4.20-6.10); RDW 29.2 % (11.5-14.5); WBC 16.7 10x3/uL (4.8-10.8)
[2017-12-09 03:46] LABS: ALBUMIN 2.2 g/dL (3.4-5.0); ANION GAP 13.1 mmol/L (8-16); BILIRUBIN - TOTAL 0.77 mg/dL (0.2-1.3); CALCIUM 8.6 mg/dL (8.5-10.1); CARBON DIOXIDE 23.9 mmol/L (21.0-32.0); CREATININE - SERUM 1.5 mg/dL (0.6-1.3); PROTEIN - SERUM 6.2 g/dL (6.4-8.2)
[2017-12-09 13:45] LABS: APPEARANCE CLEAR (CLEAR); BILIRUBIN NEGATIVE (NEGATIVE); COLOR YELLOW GREEN (YELLOW); EPITHELIAL CELLS OCC /hpf (0-5); GLUCOSE NEGATIVE (NEGATIVE); KETONE NEGATIVE (NEGATIVE); NITRITE NEGATIVE (NEGATIVE); PROTEIN NEGATIVE (NEGATIVE); UROBILINOGEN NORMAL (NORMAL); WHITE CELLS - URINE OCC /hpf (0-5)
[2017-12-09 13:46] LABS: BACTERIA FEW /hpf (NONE SEEN); MUCUS <1+ /lpf (NONE SEEN)
[2017-12-10] VITALS: BP 103/65
[2017-12-10 05:00] VITALS: BP 97/64
[2017-12-10 09:07] VITALS: BP 104/66
[2017-12-10 11:08] LABS: BASOPHILS 0.1 % (0-2); EOSINOPHILS 2.5 % (0-7); HEMATOCRIT 31.1 % (42.0-54.0); HEMOGLOBIN 9.1 g/dL (13.5-17.5); IMMATURE GRANULOCYTES 0.6 % (0-5); LYMPHOCYTES 6.7 % (15-50); MCH 22.1 pg (26.0-34.0); MCHC 29.3 g/dL (31.0-37.0); MCV 75.7 fL (80.0-100.0); MONOCYTES 7.3 % (2-11); NEUTROPHILS 82.8 % (40-80); PLATELET COUNT 200 10x3/uL (130-400); RBC 4.11 10x6/uL (4.20-6.10); RDW 29.2 % (11.5-14.5); WBC 18.9 10x3/uL (4.8-10.8)
[2017-12-10 11:24] LABS: ALBUMIN 2.1 g/dL (3.4-5.0); ALKALINE PHOSPHATASE 63 U/L (46-116); CALC OSMOLALITY 278 mosm/kg (275-300); CALCIUM 8.9 mg/dL (8.5-10.1); CARBON DIOXIDE 26.9 mmol/L (21.0-32.0); CHLORIDE - SERUM 103 mmol/L (98-107); GLUCOSE 107 mg/dL (74-106); POTASSIUM - SERUM 3.8 mmol/L (3.5-5.1); PROTEIN - SERUM 6.6 g/dL (6.4-8.2); SODIUM 138 mmol/L (136-145); UREA NITROGEN 20 mg/dL (7-18)
[2017-12-10 11:26] VITALS: BP 99/64
[2017-12-10 11:26] LABS: ALT (SGPT) 35 U/L (10-68); eGFR NON AFRICAN AMERICAN 80 mL/min (90-120)
[2017-12-10 21:08] VITALS: BP 106/63
[2017-12-11 00:37] VITALS: BP 95/63
[2017-12-11 05:09] LABS: BASOPHILS 0.2 % (0-2); EOSINOPHILS 5.8 % (0-7); HEMATOCRIT 29.5 % (42.0-54.0); HEMOGLOBIN 8.5 g/dL (13.5-17.5); IMMATURE GRANULOCYTES 0.4 % (0-5); LYMPHOCYTES 10.2 % (15-50); MCHC 28.8 g/dL (31.0-37.0); MCV 76.2 fL (80.0-100.0); NEUTROPHILS 73.4 % (40-80); PLATELET COUNT 239 10x3/uL (130-400); RBC 3.87 10x6/uL (4.20-6.10); RDW 29.1 % (11.5-14.5); WBC 14.3 10x3/uL (4.8-10.8)
[2017-12-11 06:01] LABS: ALBUMIN 2.1 g/dL (3.4-5.0); ANION GAP 13.1 mmol/L (8-16); BILIRUBIN - TOTAL 0.8 mg/dL (0.2-1.3); CALCIUM 8.8 mg/dL (8.5-10.1); CARBON DIOXIDE 27.4 mmol/L (21.0-32.0); CREATININE - SERUM 1.1 mg/dL (0.6-1.3); POTASSIUM - SERUM 3.5 mmol/L (3.5-5.1); PROTEIN - SERUM 6.6 g/dL (6.4-8.2)
[2017-12-11 08:54] VITALS: BP 119/76
[2017-12-11 15:57] VITALS: BP 106/71
[2017-12-11 23:18] VITALS: BP 105/68
[2017-12-12 05:17] VITALS: BP 117/70
[2017-12-12 06:30] LABS: BASOPHILS 0.5 % (0-2); EOSINOPHILS 9.2 % (0-7); HEMATOCRIT 29.9 % (42.0-54.0); HEMOGLOBIN 8.6 g/dL (13.5-17.5); IMMATURE GRANULOCYTES 0.5 % (0-5); LYMPHOCYTES 11.7 % (15-50); MCH 21.9 pg (26.0-34.0); MCHC 28.8 g/dL (31.0-37.0); MCV 76.1 fL (80.0-100.0); MONOCYTES 13.1 % (2-11); PLATELET COUNT 275 10x3/uL (130-400); RBC 3.93 10x6/uL (4.20-6.10); RDW 29.1 % (11.5-14.5)
[2017-12-12 06:41] LABS: ALBUMIN 2.1 g/dL (3.4-5.0); ALKALINE PHOSPHATASE 88 U/L (46-116); ALT (SGPT) 34 U/L (10-68); CALC OSMOLALITY 278 mosm/kg (275-300); CALCIUM 8.5 mg/dL (8.5-10.1); CARBON DIOXIDE 29.3 mmol/L (21.0-32.0); CHLORIDE - SERUM 103 mmol/L (98-107); CREATININE - SERUM 0.9 mg/dL (0.6-1.3); GLUCOSE 87 mg/dL (74-106); POTASSIUM - SERUM 3.2 mmol/L (3.5-5.1); PROTEIN - SERUM 6.6 g/dL (6.4-8.2); SODIUM 140 mmol/L (136-145); UREA NITROGEN 15 mg/dL (7-18); eGFR NON AFRICAN AMERICAN 90 mL/min (90-120)
[2017-12-12 08:14] VITALS: BP 106/74
[2017-12-12 12:13] VITALS: BP 123/72
[2017-12-12 16:03] VITALS: BP 98/66
[2017-12-13 05:26] VITALS: BP 117/71
[2017-12-13 06:02] LABS: BASOPHILS 0.6 % (0-2); EOSINOPHILS 5.7 % (0-7); HEMATOCRIT 28.9 % (42.0-54.0); HEMOGLOBIN 8.4 g/dL (13.5-17.5); IMMATURE GRANULOCYTES 0.4 % (0-5); LYMPHOCYTES 13.3 % (15-50); MCH 22.1 pg (26.0-34.0); MCHC 29.1 g/dL (31.0-37.0); MCV 76.1 fL (80.0-100.0); MEAN PLATELET VOLUME 9.8 fL (7.4-10.4); PLATELET COUNT 277 10x3/uL (130-400); RDW 29.1 % (11.5-14.5); WBC 10.8 10x3/uL (4.8-10.8)
[2017-12-13 06:45] LABS: ALBUMIN 2.1 g/dL (3.4-5.0); ALKALINE PHOSPHATASE 88 U/L (46-116); ALT (SGPT) 30 U/L (10-68); CALC OSMOLALITY 282 mosm/kg (275-300); CALCIUM 8.4 mg/dL (8.5-10.1); CARBON DIOXIDE 29.1 mmol/L (21.0-32.0); CHLORIDE - SERUM 102 mmol/L (98-107); CREATININE - SERUM 0.9 mg/dL (0.6-1.3); GLUCOSE 93 mg/dL (74-106); MAGNESIUM - SERUM 1.6 mg/dL (1.8-2.4); PHOSPHOROUS 2.7 mg/dL (2.5-4.9); POTASSIUM - SERUM 3.4 mmol/L (3.5-5.1); PROTEIN - SERUM 6.3 g/dL (6.4-8.2); SODIUM 142 mmol/L (136-145); UREA NITROGEN 13 mg/dL (7-18); eGFR NON AFRICAN AMERICAN 90 mL/min (90-120)
[2017-12-13 09:01] VITALS: BP 108/61
[2017-12-13 13:06] VITALS: BP 102/47
[2017-12-13 15:22] VITALS: BP 111/91
[2017-12-13 21:56] VITALS: BP 84/46
[2017-12-14 05:18] VITALS: BP 154/58
[2017-12-14 05:44] LABS: ALBUMIN 2.3 g/dL (3.4-5.0); ALKALINE PHOSPHATASE 88 U/L (46-116); ALT (SGPT) 30 U/L (10-68); CALC OSMOLALITY 285 mosm/kg (275-300); CALCIUM 8.9 mg/dL (8.5-10.1); CARBON DIOXIDE 34.9 mmol/L (21.0-32.0); CHLORIDE - SERUM 103 mmol/L (98-107); GLUCOSE 114 mg/dL (74-106); POTASSIUM - SERUM 3.3 mmol/L (3.5-5.1); PROTEIN - SERUM 6.8 g/dL (6.4-8.2); SODIUM 143 mmol/L (136-145); UREA NITROGEN 13 mg/dL (7-18); eGFR NON AFRICAN AMERICAN 80 mL/min (90-120)
[2017-12-14 06:27] LABS: BASOPHILS 0.5 % (0-2); EOSINOPHILS 6.7 % (0-7); HEMATOCRIT 29.6 % (42.0-54.0); HEMOGLOBIN 8.7 g/dL (13.5-17.5); IMMATURE GRANULOCYTES 0.5 % (0-5); MCH 22.4 pg (26.0-34.0); MCHC 29.4 g/dL (31.0-37.0); MCV 76.1 fL (80.0-100.0); MEAN PLATELET VOLUME 9.6 fL (7.4-10.4); MONOCYTES 14.3 % (2-11); RBC 3.89 10x6/uL (4.20-6.10); RDW 29.2 % (11.5-14.5); WBC 12.9 10x3/uL (4.8-10.8)
[2017-12-14 06:34] LABS: PLATELET COUNT 344 10x3/uL (130-400)
[2017-12-14 08:55] VITALS: BP 113/58
[2017-12-14 12:48] VITALS: BP 106/61
[2017-12-14 16:04] VITALS: BP 97/51
[2017-12-15 04:47] VITALS: BP 98/54
[2017-12-15 06:18] LABS: BASOPHILS 0.8 % (0-2); EOSINOPHILS 8.4 % (0-7); HEMATOCRIT 29.2 % (42.0-54.0); HEMOGLOBIN 8.4 g/dL (13.5-17.5); IMMATURE GRANULOCYTES 0.9 % (0-5); LYMPHOCYTES 17.5 % (15-50); MCH 22.3 pg (26.0-34.0); MCHC 28.8 g/dL (31.0-37.0); MCV 77.5 fL (80.0-100.0); MEAN PLATELET VOLUME 9.7 fL (7.4-10.4); MONOCYTES 13.3 % (2-11); NEUTROPHILS 59.1 % (40-80); PLATELET COUNT 410 10x3/uL (130-400); RBC 3.77 10x6/uL (4.20-6.10); RDW 29.6 % (11.5-14.5); WBC 11.1 10x3/uL (4.8-10.8)
[2017-12-15 06:49] LABS: ALBUMIN 2.1 g/dL (3.4-5.0); ALKALINE PHOSPHATASE 90 U/L (46-116); ALT (SGPT) 29 U/L (10-68); BILIRUBIN - TOTAL 0.59 mg/dL (0.2-1.3); CALC OSMOLALITY 280 mosm/kg (275-300); CALCIUM 8.7 mg/dL (8.5-10.1); CARBON DIOXIDE 34.6 mmol/L (21.0-32.0); CHLORIDE - SERUM 102 mmol/L (98-107); CREATININE - SERUM 0.8 mg/dL (0.6-1.3); GLUCOSE 113 mg/dL (74-106); POTASSIUM - SERUM 3.6 mmol/L (3.5-5.1); PROTEIN - SERUM 6.4 g/dL (6.4-8.2); SODIUM 141 mmol/L (136-145); UREA NITROGEN 11 mg/dL (7-18); eGFR NON AFRICAN AMERICAN > 90 mL/min (90-120)
[2017-12-15 08:03] VITALS: BP 113/71
[2017-12-15 09:09] LABS: % SATURATION 14 % (15-55); IRON 29 ug/dl (35-150); TOTAL IRON BIND CAPACITY 198 ug/dl (260-445); UNSAT IRON BIND CAPACITY 169 ug/dl (150-375)
[2017-12-15] MEDS ORDERED: PROTONIX40 MG PO (11:38)
[2017-12-15] MEDS ORDERED: FLAGYL500 MG PO (11:38)
[2017-12-15] MEDS ORDERED: LISINOPRIL10 MG PO (11:38)
[2017-12-15] MEDS ORDERED: LEVAQUIN750 MG PO (11:38)
[2017-12-15] MEDS ORDERED: BUMEX2 MG PO (11:38)
[2017-12-15] MEDS ORDERED: COREG12.5 MG PO (11:38)
== END 2017-12-15 14:29 | DRG 329 ==
LOC: D.ICU 09:02 → D.MS 09:02 → EEVIPCON 12-03 08:00 → D.ICU 12-07 19:13 → D.MS 12-10 02:21 → D.SDCHOLD 12-10 16:07 → D.MS 12-10 16:07
PROVIDERS: Family Medicine; Internal Medicine Hematology & Oncology; Internal Medicine Nephrology; Surgery
PROC: 02HV33Z Insertion of Infusion Device into Superior Vena Cava, Percutaneous Approach (ICD-10-PCS; 2017-12-01)
PROC: B548ZZA Ultrasonography of Superior Vena Cava, Guidance (ICD-10-PCS; 2017-12-01)
PROC: 0DTQ0ZZ Resection of Anus, Open Approach (ICD-10-PCS; 2017-12-07)
PROC: 0DTJ0ZZ Resection of Appendix, Open Approach (ICD-10-PCS; 2017-12-07)
PROC: 0WUF07Z Supplement Abdominal Wall with Autologous Tissue Substitute, Open Approach (ICD-10-PCS; 2017-12-07)
PROC: 0D1M0Z4 Bypass Descending Colon to Cutaneous, Open Approach (ICD-10-PCS; 2017-12-07)
PROC: 0DTP0ZZ Resection of Rectum, Open Approach (ICD-10-PCS; principal; 2017-12-07 11:45)
PROC: 0DTN0ZZ Resection of Sigmoid Colon, Open Approach (ICD-10-PCS; 2017-12-07 11:45)
DX: C21.8 Malignant neoplasm of overlapping sites of rectum, anus and anal canal (principal); I50.23 Acute on chronic systolic (congestive) heart failure; N17.9 Acute kidney failure, unspecified; K56.7 Ileus, unspecified; I11.0 Hypertensive heart disease with heart failure; I48.0 Paroxysmal atrial fibrillation; K74.60 Unspecified cirrhosis of liver; B19.20 Unspecified viral hepatitis C without hepatic coma; N40.0 Benign prostatic hyperplasia without lower urinary tract symptoms; I34.0 Nonrheumatic mitral (valve) insufficiency; R50.82 Postprocedural fever; D50.9 Iron deficiency anemia, unspecified

== ENCOUNTER 2018-02-21 05:00 | Day surgery (SDC) | payer OTHER ==
[~2018-02-21] VITALS: Ht 170.2 cm; Wt 81.6 kg
--- NOTE | ~2018-02-21 | OP ---
PATIENT NAME: RENEE TIRADO MEDICAL RECORD: [id number] :54 LOCATION:[facility] ADMISSION DATE: SURGEON: WINTER PULIDO MD DATE OF OPERATION: 02/21/2018 PREOPERATIVE DIAGNOSES: Rectal cancer with metastases and need of IV access for chemotherapy. POSTOPERATIVE DIAGNOSES: Rectal cancer with metastases and need of IV access for chemotherapy. PROCEDURES: 1. Placement of left infraclavicular PowerPort under fluoroscopic guidance. 2. Immediate surgeon interpretation of the fluoroscopic images. SURGEON: Winter Pulido MD [employer]ENCE S[employer]OL TEACHER: None. BLOOD LOSS: Minimal. ANESTHESIA: General. COMPLICATIONS: None. The risks, possible complications and alternatives to the procedure were explained to the patient. He elects to proceed. The discussion specifically included, but was not limited to, bleeding requiring an emergency reoperation, infection, great vessel injury, pneumothorax. Also educated include flippage of the port that the fact that port could break or could clog up. No radiologist was present for this procedure. Static fluoroscopic images were obtained and are kept in the computer system. The surgeon interpretation of the radiographic images is dictated within the body of this operative note. OPERATIVE COURSE: The patient was conveyed to the operating room electively on 02/21/2018. General anesthesia was induced by the anesthesia staff. The left neck and chest were sterilely prepped and draped. Under ultrasonographic guidance, I percutaneously accessed the left internal jugular vein. A guidewire passed easily. Under fluoroscopy, it was advanced into the right side of the heart. A small skin giorgi was accomplished around the guidewire. A transverse incision was accomplished in the left infraclavicular superior chest. A subcutaneous pocket was created bluntly. I then removed some of the adipose tissue from between the skin and the pocket. I tunneled the PowerPort catheter from the chest incision to the neck incision. A dilator sheath was advanced over the wire. The dilator and wire were removed. Through the peel-away sheath, the PowerPort catheter was advanced. The Peel-Away sheath was then removed. I then pulled back on the catheter, so that it was at the cavoatrial junction. I shortened the PowerPort catheter. It was attached to the PowerPort. The locking device was firmly engaged. The port was sutured to the underlying pectoralis fascia in a 3-point fashion with 3-0 Prolenes to prevent the port from flipping. The skin at the neck was closed with an interrupted intracuticular 3-0 Vicryl OPERATIVE REPORT [id number] RENEE TIRADO and then a horizontal mattress 4-0 Vicryl Rapide suture. The skin in the left infraclavicular chest was closed with interrupted 3-0 Vicryls and a running intracuticular 4-0 Vicryl. I accessed the port. It accessed easily. It withdrew dark, nonpulsatile blood. I then flushed with heparinized saline. A sterile dressing was applied consisting of Dermabond, benzoin, and Steri-Strips. The patient was then extubated and conveyed to post-anesthesia care unit where he was in stable condition. There is no need for him to follow up with me in the office unless he develops a complication related to this operative procedure. The PowerPort is okay to use. TRANSINT:[id number] Voice Confirmation ID: [id number] DOCUMENT ID: [id number] WINTER PULIDO MD at 1717 CC: MK LANGLEY MD [id number] DICTATION DATE: 02/21/18 0944 PRODUCT MANAGEMENT SPECIALIST: 02/21/18 1043 [facility] 02/21/18 [id number] [place] [id number]
[~2018-02-21 05:00] MED LIST changes: +BUMEX2 MG PO; +COREG12.5 MG PO; +FLAGYL500 MG PO; +LEVAQUIN750 MG PO; +LISINOPRIL10 MG PO; +PERCOCET 10/3251 TA1 PO; +PROTONIX40 MG PO
[2018-02-21 06:45] VITALS: BP 161/97; Ht 170.2 cm; Wt 81.6 kg
[2018-02-21 06:57] LABS: BASOPHILS 0.6 % (0-2); EOSINOPHILS 5.8 % (0-7); HEMATOCRIT 41.3 % (42.0-54.0); HEMOGLOBIN 13.2 g/dL (13.5-17.5); IMMATURE GRANULOCYTES 0.2 % (0-5); LYMPHOCYTES 30.3 % (15-50); MCV 84.5 fL (80.0-100.0); MONOCYTES 11.8 % (2-11); NEUTROPHILS 51.3 % (40-80); RBC 4.89 10x6/uL (4.20-6.10); RDW 19.4 % (11.5-14.5); WBC 9.9 10x3/uL (4.8-10.8)
[2018-02-21 06:59] LABS: PLATELET COUNT 206 10x3/uL (130-400)
[2018-02-21 07:12] LABS: APTT 58.2 SECONDS (22.8-39.4); INR 3.52 (0.85-1.17); PROTIME 34.5 SECONDS (11.6-15.0)
[2018-02-21 07:36] LABS: ALBUMIN 3.9 g/dL (3.4-5.0); ALKALINE PHOSPHATASE 87 U/L (46-116); ALT (SGPT) 24 U/L (10-68); BILIRUBIN - TOTAL 0.25 mg/dL (0.2-1.3); CALC OSMOLALITY 276 mosm/kg (275-300); CARBON DIOXIDE 30.6 mmol/L (21.0-32.0); CHLORIDE - SERUM 102 mmol/L (98-107); DIGOXIN 0.41 ng/mL (0.90-2.00); GLUCOSE 87 mg/dL (74-106); PROTEIN - SERUM 8.5 g/dL (6.4-8.2); SODIUM 139 mmol/L (136-145); UREA NITROGEN 13 mg/dL (7-18); eGFR NON AFRICAN AMERICAN 79 mL/min (90-120)
== END 2018-02-21 12:45 | disposition home or self-care (01) ==
LOC: D.OPS 05:00
PROVIDERS: Anesthesiology
DX: C20 Malignant neoplasm of rectum (principal); C79.9 Secondary malignant neoplasm of unspecified site; Z01.812 Encounter for preprocedural laboratory examination